=== PATIENT | male | born 1985 | race American Indian/Alaskan Native ===

== ENCOUNTER 2018-04-21 12:52 | Emergency (ER) | payer SELFPAY ==
[2018-04-21 13:10] VITALS: BP 148/85
[2018-04-21] MEDS ORDERED: NORCO 5/325 PO ONE (15:52)
[2018-04-21] MEDS ORDERED: KEFLEX PO ONE (15:52)
--- NOTE | 2018-04-21 15:57 | Emergency Department Report ---
Abscess Boil HPI - HPI Chief Complaint: Extremity Problem,Nontraumatic Stated Complaint: POSS THUMB INJURY Time Seen by Provider: 04/21/18 15:46 Duration: 5 Days Location: Upper Extremity Severity: Mild History: Yes Pain, No Fever, No Purulent Drainage, No Numbness, No Foreign Body , No Previous History, No Insect Bite Home Medications: Previous Rx's Medication Instructions Recorded Last Taken Type cephALEXin [Keflex] 500 mg PO Q12HR #20 cap 04/21/18 Unknown Rx Allergies/Adverse Reactions: Allergies Allergy/AdvReac Type Severity Reaction Status Date / Time No Known Allergies Allergy Verified 07/09/15 21:05 ED Review of Systems ROS: Stated complaint: POSS THUMB INJURY Other details as noted in HPI Comment: All other systems reviewed and negative Constitutional: denies: chills, fever Eyes: denies: eye pain ENT: denies: ear pain Respiratory: denies: cough Cardiovascular: denies: chest pain Endocrine: denies: excessive sweating, flushing Gastrointestinal: denies: abdominal pain Genitourinary: denies: urgency Musculoskeletal: denies: back pain Skin: lesions (R THUMB ) Neurological: denies: headache Psychiatric: denies: anxiety Hematological/Lymphatic: denies: easy bleeding ED Past Medical Hx - Past Medical History Previous Medical History?: Yes Hx Hypertension: Yes Hx Diabetes: Yes Additional medical history: For hypertension negative for dyslipidemia - Surgical History Past Surgical History?: Yes Additional Surgical History: Right ankle broken 2010. - Family History Family history: no significant - Social History Smoking Status: Current Every Day Smoker Substance Use Type: None - Medications Home Medications: Home Medications Medication Instructions Recorded Confirmed Last Taken Type cephALEXin [Keflex] 500 mg PO Q12HR #20 cap 04/21/18 Unknown Rx ED Abscess Boil Physical Exam - Exam General: Vital signs noted. No distress. Alert and acting appropriately. Size: 1 cm Exam: Yes Tenderness, Yes Fluctuance, Yes Normal Neurologic Exam, Yes Normal Circulation, No Surrounding Cellulites/Erythema, No Lymphangitis, No Crepitation , No Heart Murmur Exam: R THUMB LATERAL PARONYCHIA I & D Note - I & D Note I & D Note: I/D TO R THUMB. [facility] ED Course Vital Signs 04/21/18 13:08 Temperature 98.4 F Pulse Rate 84 Respiratory 16 Rate Blood Pressure 148/85 O2 Sat by Pulse 96 Oximetry Critical care attestation.: If time is entered above; I have spent that time in minutes in the direct care of this critically ill patient, excluding procedure time. ED Medical Decision Making - Medical Decision Making NON ILL APPEARING - Differential Diagnosis PARONYCHIA ED Disposition Clinical Impression: Diabetes, Paronychia Disposition: DC-01 TO HOME OR SELFCARE Is pt being admited?: No Does the pt Need Aspirin: No Condition: Stable Instructions: Paronychia (ED) Additional Instructions: SOAK WOUND IN WARM WATER AND EPSOM SALTS THREE TIMES PER DAY FOR 20 M EACH TIME. MEDS UNTIL GONE FOLLOW UP WITH PCP MONITOR BLOOD SUGAR KEEP WOUND CLEAN ALLOW TO DRAIN Referrals: PRIMARY CARE, [Primary Care Provider] - 3-5 Days Time of Disposition: 15:56
== END 2018-04-21 16:08 | disposition home or self-care (01) ==
LOC: ED 12:52
DX: L03.011 Cellulitis of right finger (principal); E11.9 Type 2 diabetes mellitus without complications; F17.200 Nicotine dependence, unspecified, uncomplicated; I10 Essential (primary) hypertension
CPT/HCPCS: 99282

== ENCOUNTER 2020-11-30 21:09 | Emergency (ER) | payer OTHER ==
[2020-11-30] MEDS ORDERED: ASPIRIN 325 MG TAB PO ONE (21:30)
--- NOTE | 2020-11-30 21:34 | Event Note ---
ED Screening Note Date of service: 11/30/20 Time: 21:33 ED Screening Note: 35-year-old morbid obese -Omani male with a past medical history of hypertension diabetes presents to the emergency room complaining of chest pain shortness of breath for few days. Patient thinks his blood sugar is low. Blood sugar checked in triage is 110. Blood pressure is 184/100. This initial assessment/diagnostic orders/clinical plan/treatment(s) is/are subject to change based on patients health status, clinical progression and re- assessment by fellow clinical providers in the ED. Further treatment and workup at subsequent clinical providers discretion. Patient/guardian urged not to elope from the ED as their condition may be serious if not clinically assessed and managed. Initial orders include:
[2020-11-30 22:04] LABS: Basophils # (Auto) 0.1 K/mm3 (0.0-0.1); Basophils % (Auto) 0.8 % (0.0-1.8); Eosinophils # (Auto) 0.1 K/mm3 (0.0-0.4); Eosinophils % (Auto) 1.2 % (0.0-4.3); Hematocrit 40.9 % (35.5-45.6); Hemoglobin 13.9 gm/dl (11.8-15.2); Lymphocytes # (Auto) 3.7 K/mm3 (1.2-5.4); Lymphocytes % (Auto) 50.9 % (13.4-35.0); Mean Corpuscular HGB Conc 34 % (32-34); Mean Corpuscular Volume 83 fl (84-94); Monocytes # (Auto) 0.8 K/mm3 (0.0-0.8); Monocytes % (Auto) 10.7 % (0.0-7.3); Platelet Count 201 K/mm3 (140-440); Red Blood Count 4.91 M/mm3 (3.65-5.03)
--- NOTE | 2020-11-30 22:25 | XRay Report ---
CHEST 2 VIEWS INDICATION / CLINICAL INFORMATION: chest pain. COMPARISON: 11/10/2019 FINDINGS: SUPPORT DEVICES: None. HEART / MEDIASTINUM: Stable. LUNGS / PLEURA: No significant pulmonary or pleural abnormality. No pneumothorax. ADDITIONAL FINDINGS: No significant additional findings. IMPRESSION: 1. No acute findings. Signer Name: Tee Mayberry MD Signed: 11/30/2020 10:21 PM Workstation Name: [id number]
[2020-11-30 22:28] LABS: Alanine Aminotransferase 35 units/L (7-56); BUN/Creatinine Ratio 18; Blood Urea Nitrogen 18 mg/dL (9-20); Calcium 8.9 mg/dL (8.4-10.2); Hemolysis Index 24
--- NOTE | 2020-12-01 01:23 | Emergency Department Report ---
ED Chest Pain HPI - General Chief Complaint: Chest Pain Stated Complaint: SOB/DIABETIC PUI?: No Time Seen by Provider: 12/01/20 01:20 Source: patient Mode of arrival: Ambulatory Limitations: No Limitations - History of Present Illness Initial Comments: Patient is a 35-year-old male that presents emergency room with complaints of chest pain or shortness of breath. Patient states that his chest pain shortness of breath started 2 days ago. Patient states that the symptoms are worsening. Patient states there intermittent but coming more frequently. Patient states he called EMS because he was unable to get out of bed or get up and walk due to the debilitating shortness of breath and chest pain. Patient states his chest pain or shortness of breath are better with rest. Patient states his shortness of breath and chest pain are worse with exertion. Patient states the chest pain is in the left upper chest. Patient states is nonradiating. Patient states is a 10 out of 10. Patient denies recent travel. Patient denies recent international travel. Patient denies exposure to the novel coronavirus. Patient denies sick contacts. Patient denies fever and chills. Patient denies cough. Patient denies diarrhea. Patient denies coming in contact with anybody with symptoms of the novel coronavirus. Patient states he has history of diabetes, hyperlipidemia and hypertension. Patient states he thinks he takes something for cholesterol. MD Complaint: chest pain -: Sudden Pain Location: substernal, left chest Severity: severe Severity scale (0 -10): 10 Quality: sharp Consistency: constant Improves With: rest Worsens With: exertion re: dyspnea. denies: nausea, vomting, diaphoresis Other Symptoms: denies: cough, fever, syncope, rash, acid taste in mouth, leg swelling, palpitations, burping Treatments Prior to Arrival: none Aspirin use within the Past 7 Days: (1) Yes - Related Data On Oral Contraceptives: No Previous Rx's Medication Instructions Recorded Last Taken Type Magnesium Oxide 400 mg PO QDAY #30 tablet 11/10/19 Unknown Rx Multivitamin with Folic Acid [[facility] 400 mcg PO QDAY #30 tablet 11/10/19 Unknown Rx One Daily Essential Tablet] chlordiazePOXIDE [Librium] 25 mg PO Q6H PRN #25 capsule 11/10/19 Unknown Rx Allergies Allergy/AdvReac Type Severity Reaction Status Date / Time No Known Allergies Allergy Verified 07/09/15 21:05 Heart Score - HEART Score History: Moderately suspicious EKG: Non-specific Age: < 45 Risk factors: > 3 risk factors or hx of atherosclerotic disease Troponin: < normal limit HEART Score: 4 - EKG Read Time Time EKG Completed: 21:30 EKG Read Time: 21:32 ED Review of Systems ROS: Stated complaint: SOB/DIABETIC Other details as noted in HPI Constitutional: denies: chills, fever Eyes: denies: eye pain, eye discharge, vision change ENT: denies: ear pain, throat pain Respiratory: shortness of breath. denies: cough, wheezing Cardiovascular: as per HPI, chest pain. denies: palpitations Endocrine: no symptoms reported Gastrointestinal: denies: abdominal pain, nausea, diarrhea Genitourinary: denies: urgency, dysuria Musculoskeletal: denies: back pain, joint swelling, arthralgia Skin: denies: rash, lesions Neurological: denies: headache, weakness, paresthesias Psychiatric: denies: anxiety, depression Hematological/Lymphatic: denies: easy bleeding, easy bruising ED Past Medical Hx - Past Medical History Previous Medical History?: Yes Hx Hypertension: Yes Hx Diabetes: Yes Additional medical history: For hypertension negative for dyslipidemia - Surgical History Past Surgical History?: Yes Additional Surgical History: Right ankle broken 2010. - Family History Family history: no significant - Social History Smoking Status: Never Smoker Substance Use Type: None - Medications Home Medications: Home Medications Medication Instructions Recorded Confirmed Last Taken Type Magnesium Oxide 400 mg PO QDAY #30 tablet 11/10/19 Unknown Rx Multivitamin with Folic Acid [[facility] 400 mcg PO QDAY #30 tablet 11/10/19 Unknown Rx One Daily Essential Tablet] chlordiazePOXIDE [Librium] 25 mg PO Q6H PRN #25 capsule 11/10/19 Unknown Rx ED Physical Exam - General Limitations: No Limitations General appearance: alert, in no apparent distress - Head Head exam: Present: atraumatic, normocephalic - Eye Eye exam: Present: normal appearance - ENT ENT exam: Present: mucous membranes moist - Neck Neck exam: Present: normal inspection - Respiratory Respiratory exam: Present: normal lung sounds bilaterally. Absent: respiratory distress - Cardiovascular Cardiovascular Exam: Present: regular rate, normal rhythm. Absent: systolic murmur, diastolic murmur, rubs, gallop - GI/Abdominal GI/Abdominal exam: Present: soft, normal bowel sounds - Rectal Rectal exam: Present: deferred - Extremities Exam Extremities exam: Present: normal inspection - Back Exam Back exam: Present: normal inspection - Neurological Exam Neurological exam: Present: alert, oriented X3 - Psychiatric Psychiatric exam: Present: normal affect, normal mood - Skin Skin exam: Present: warm, dry, intact, normal color. Absent: rash ED Course Vital Signs 11/30/20 12/01/20 12/01/20 21:15 01:12 02:01 Temperature 98.2 F Pulse Rate 114 H Respiratory 18 Rate Blood Pressure 184/100 152/96 O2 Sat by Pulse 97 98 98 Oximetry 12/01/20 12/01/20 03:00 03:01 Temperature Pulse Rate 93 H Respiratory 18 Rate Blood Pressure 163/90 O2 Sat by Pulse 100 99 Oximetry - Reevaluation(s) Reevaluation #1: I discussed all results with patient. I discussed plan of care with patient. Patient agrees with plan of care and transfer. Patient be transferred to a [facility] facility. 12/01/20 02:33 - Consultations Consultation #1: I discussed the case with Michael, Dr. Huddleston. Dr. Huddleston accepted the patient to be an ER to ER transfer to [facility] facility. 12/01/20 02:30 WILMER score - Wilmer Score Age > 65: (0) No Aspirin use within the Past 7 Days: (1) Yes 3 or more CAD Risk Factors: (1) Yes 2 or more Angina events in past 24 hrs: (1) Yes Known CAD with more than 50% Stenosis: (0) No Elevated Cardiac Markers: (0) No ST Deviation Greater than 0.5mm: (0) No WILMER Score: 3 ED Medical Decision Making - Lab Data Result diagrams: 11/30/20 21:54 11/30/20 21:54 - EKG Data -: EKG Interpreted by Me EKG shows normal: sinus rhythm, axis, intervals, QRS complexes, ST-T waves Rate: tachycardia - EKG Data Interpretation: other - Radiology Data Radiology results: report reviewed, image reviewed interpreted by me: Chest x-ray: No pneumonia, no pneumothorax, no foreign body, no osseous findings, no acute findings - Medical Decision Making Patient is a 35-year-old male that presents emergency room with complaints of chest pain and shortness of breath. Patient symptoms worsen. Patient had a cardiac work-up. Patient is a cardiac negative. Patient troponin negative x2. Patient's chest x-ray was negative for acute finding. Patient's EKG is negative for acute findings shows a normal sinus tach with PVCs. EKG shows no ST segment changes. I personally reviewed the EKG and chest x-ray. Patient has cardiac risk factors of diabetes, obesity and hyperlipidemia. Patient will require admission to rule out ACS. Patient's private insurance is [employer] and [facility] has accepted the patient be transferred to ER to ER to a [facility] facility. Patient stable for transfer. Critical care time documented due to the multiple reassessments, prolonged time at the bedside, interpretation of diagnostics and labs and discussion with consultants and receiving hospital. - Differential Diagnosis Chest pain, ACS, shortness of breath, anxiety, Critical Care Time: Yes Critical care time in (mins) excluding proc time.: 35 Critical care attestation.: If time is entered above; I have spent that time in minutes in the direct care of this critically ill patient, excluding procedure time. Critical Care Time: 35 minutes ED Disposition Clinical Impression: SOB (shortness of breath) Chest pain Qualifiers: Chest pain type: unspecified Qualified Code(s): R07.9 - Chest pain, unspecified Disposition: DC/TX-70 ANOTHER TYPE HLTHCARE Is pt being admited?: No Does the pt Need Aspirin: No Condition: Critical Time of Disposition: 02:34
[2020-12-01 03:29] VITALS: BP 163/90
--- NOTE | 2020-12-05 17:25 | Electrocardiograph Report ---
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
== END 2020-12-01 04:41 | disposition other institution (70) ==
LOC: ED 21:09
DX: R07.89 Other chest pain (principal); R06.02 Shortness of breath; I10 Essential (primary) hypertension; E11.9 Type 2 diabetes mellitus without complications; Z98.890 Other specified postprocedural states; Z79.899 Other long term (current) drug therapy
CPT/HCPCS: 36415; 71046; 80053; 82962; 84484; 85025; 93005

== ENCOUNTER 2020-12-17 15:29 | Emergency (ER) | payer OTHER ==
[2020-12-17 16:16] VITALS: BP 137/86
[2020-12-17 17:02] LABS: Basophils # (Auto) 0.1 K/mm3 (0.0-0.1); Basophils % (Auto) 1.4 % (0.0-1.8); Eosinophils # (Auto) 0.1 K/mm3 (0.0-0.4); Eosinophils % (Auto) 2.1 % (0.0-4.3); Hematocrit 38.5 % (35.5-45.6); Lymphocytes # (Auto) 1.7 K/mm3 (1.2-5.4); Mean Corpuscular HGB Conc 34 % (32-34); Mean Corpuscular Volume 86 fl (84-94); Monocytes # (Auto) 0.4 K/mm3 (0.0-0.8); Monocytes % (Auto) 11.3 % (0.0-7.3); Platelet Count 296 K/mm3 (140-440); Red Cell Distribution Width 16.6 % (13.2-15.2)
--- NOTE | 2020-12-17 17:04 | Emergency Department Report ---
ED Chest Pain HPI - General Chief Complaint: Chest Pain Stated Complaint: CHEST PAIN Time Seen by Provider: 12/17/20 16:40 Source: patient Mode of arrival: Ambulatory Limitations: No Limitations - History of Present Illness Initial Comments: This is a 35-year-old male type II diabetic with hypertension who signed out AMA after a "5-day" admission at [facility] approximately 2 to 3 weeks ago. The patient states, "this time I am going to do right". He states for the past 3 days he has been having substernal chest heaviness. He wakes up in the night short of breath he states. He is not short of breath at rest at the time of my encounter. He tells me the reason why he came to the hospital today is because "my mother said I did not look right". He did not take his Metformin today. Apparently he has not been following up with his [facility] physician either. He does not know what the results of his testing were at [facility]. He does state that "2 of my doctors wanted me to stay". I asked him about cardiac catheterization and he was not able to confirm if that was the plan. He does appear relatively comfortable and is not complaining of chest pain currently. MD Complaint: chest pain -: Gradual, days(s), week(s) Onset: during rest Pain Location: substernal Pain Radiation: none Severity: mild, moderate Quality: heaviness Consistency: now resolved Improves With: nothing Worsens With: nothing re: denies: nausea, vomting, diaphoresis Other Symptoms: denies: cough, fever, syncope Treatments Prior to Arrival: other (As above denies taking aspirin) Aspirin use within the Past 7 Days: (0) No - Related Data Previous Rx's Medication Instructions Recorded Last Taken Type Magnesium Oxide 400 mg PO QDAY #30 tablet 11/10/19 Unknown Rx Multivitamin with Folic Acid [[facility] 400 mcg PO QDAY #30 tablet 11/10/19 Unknown Rx One Daily Essential Tablet] chlordiazePOXIDE [Librium] 25 mg PO Q6H PRN #25 capsule 11/10/19 Unknown Rx Allergies Allergy/AdvReac Type Severity Reaction Status Date / Time No Known Allergies Allergy Verified 07/09/15 21:05 Heart Score - HEART Score History: Moderately suspicious EKG: Significant ST-depression Age: < 45 Risk factors: > 3 risk factors or hx of atherosclerotic disease Troponin: < normal limit HEART Score: 5 - EKG Read Time Time EKG Completed: 15:36 EKG Read Time: 15:40 - Critical Actions Critical Actions: 4-6 pts:12-16.6% risk of adverse cardiac event. Should be admitted ED Review of Systems ROS: Stated complaint: CHEST PAIN Other details as noted in HPI Constitutional: denies: chills, fever Eyes: denies: eye pain, eye discharge, vision change ENT: denies: ear pain, throat pain Respiratory: see HPI, shortness of breath. denies: cough, wheezing Cardiovascular: chest pain. denies: palpitations Endocrine: no symptoms reported Gastrointestinal: denies: abdominal pain, nausea, diarrhea Genitourinary: denies: urgency, dysuria Musculoskeletal: denies: back pain, joint swelling, arthralgia Skin: denies: rash, lesions Neurological: denies: headache, weakness, paresthesias Psychiatric: denies: anxiety, depression Hematological/Lymphatic: denies: easy bleeding, easy bruising ED Past Medical Hx - Past Medical History Previous Medical History?: Yes Hx Hypertension: Yes Hx Diabetes: Yes Additional medical history: For hypertension negative for dyslipidemia - Surgical History Additional Surgical History: Right ankle broken 2010. - Social History Smoking Status: Never Smoker Substance Use Type: None - Medications Home Medications: Home Medications Medication Instructions Recorded Confirmed Last Taken Type Magnesium Oxide 400 mg PO QDAY #30 tablet 11/10/19 Unknown Rx Multivitamin with Folic Acid [[facility] 400 mcg PO QDAY #30 tablet 11/10/19 Unknown Rx One Daily Essential Tablet] chlordiazePOXIDE [Librium] 25 mg PO Q6H PRN #25 capsule 11/10/19 Unknown Rx ED Physical Exam - General Limitations: No Limitations General appearance: alert, in no apparent distress, obese - Head Head exam: Present: atraumatic, normocephalic - Eye Eye exam: Present: normal appearance. Absent: scleral icterus - ENT ENT exam: Present: mucous membranes moist - Neck Neck exam: Present: normal inspection - Respiratory Respiratory exam: Present: normal lung sounds bilaterally. Absent: respiratory distress - Cardiovascular Cardiovascular Exam: Present: regular rate, normal rhythm. Absent: systolic murmur, diastolic murmur, rubs, gallop - GI/Abdominal GI/Abdominal exam: Present: soft, normal bowel sounds. Absent: distended, tenderness, guarding, rebound, rigid - Rectal Rectal exam: Present: deferred - Extremities Exam Extremities exam: Present: normal inspection - Back Exam Back exam: Present: normal inspection - Neurological Exam Neurological exam: Present: alert, oriented X3, CN II-XII intact. Absent: motor sensory deficit - Psychiatric Psychiatric exam: Present: normal affect, normal mood - Skin Skin exam: Present: warm, dry, intact, normal color. Absent: rash ED Course Vital Signs 12/17/20 16:12 Temperature 98.5 F Pulse Rate 89 Respiratory 18 Rate Blood Pressure 137/86 [Right] O2 Sat by Pulse 98 Oximetry - Reevaluation(s) Reevaluation #1: Attempted to get records from [facility]. Attempted to call [facility] concerning the patient. On reassessment, the patient was found to be eloped. 12/17/20 18:25 Reevaluation #2: I do not see evidence of diabetes on multiple lab tests. The patient's blood sugar was not elevated despite him not taking Metformin. He is apparently medically noncompliant in several regards. Quite ironically, after telling me "I am going to do right this time" he eloped without informing the nurse. 12/17/20 18:27 WILMER score - Wilmer Score Age > 65: (0) No Aspirin use within the Past 7 Days: (1) Yes 3 or more CAD Risk Factors: (1) Yes 2 or more Angina events in past 24 hrs: (1) Yes Known CAD with more than 50% Stenosis: (0) No Elevated Cardiac Markers: (0) No ST Deviation Greater than 0.5mm: (0) No WILMER Score: 3 ED Medical Decision Making - Lab Data Result diagrams: 12/17/20 16:44 12/17/20 16:44 Laboratory Results - last 24 hr 12/17/20 12/17/20 12/17/20 16:09 16:44 16:44 WBC 3.6 L RBC 4.50 Hgb 13.0 Hct 38.5 MCV 86 MCH 29 MCHC 34 RDW 16.6 H Plt Count 296 Lymph % (Auto) 46.0 H Navarro % (Auto) 11.3 H Eos % (Auto) 2.1 Baso % (Auto) 1.4 Lymph # (Auto) 1.7 Navarro # (Auto) 0.4 Eos # (Auto) 0.1 Baso # (Auto) 0.1 Seg Neutrophils % 39.2 L Seg Neutrophils # 1.4 L PT 12.2 INR 0.91 APTT 27.1 Sodium Potassium Chloride Carbon Dioxide Anion Gap BUN Creatinine Estimated GFR BUN/Creatinine Ratio Glucose POC Glucose 106 H Calcium Magnesium Total Bilirubin Direct Bilirubin Indirect Bilirubin AST ALT Alkaline Phosphatase Troponin T NT-Pro-B Natriuret Pep Total Protein Albumin Albumin/Globulin Ratio 12/17/20 12/17/20 12/17/20 16:44 16:44 16:44 WBC RBC Hgb Hct MCV MCH MCHC RDW Plt Count Lymph % (Auto) Navarro % (Auto) Eos % (Auto) Baso % (Auto) Lymph # (Auto) Navarro # (Auto) Eos # (Auto) Baso # (Auto) Seg Neutrophils % Seg Neutrophils # PT INR APTT Sodium 135 L Potassium 4.1 Chloride 96.9 L Carbon Dioxide 22 Anion Gap 20 BUN 20 Creatinine 1.0 Estimated GFR > 60 BUN/Creatinine Ratio 20 Glucose 94 POC Glucose Calcium 9.0 Magnesium 1.60 L Total Bilirubin 0.60 Direct Bilirubin < 0.2 Indirect Bilirubin 0.4 AST 42 H ALT 35 Alkaline Phosphatase 46 Troponin T < 0.010 NT-Pro-B Natriuret Pep 18.59 Total Protein 6.4 Albumin 4.1 Albumin/Globulin Ratio 1.8 - EKG Data -: EKG Interpreted by Ms EKG shows normal: sinus rhythm, axis, intervals, QRS complexes, ST-T waves Rate: normal - EKG Data Interpretation: other (T depression and/or T wave inversion inferolateral leads, consider ischemia) Critical care attestation.: If time is entered above; I have spent that time in minutes in the direct care of this critically ill patient, excluding procedure time. ED Disposition Clinical Impression: Medical non-compliance Chest pain Qualifiers: Chest pain type: unspecified Qualified Code(s): R07.9 - Chest pain, unspecified Disposition: ELOPED Is pt being admited?: No Does the pt Need Aspirin: No Condition: Stable Instructions: Nonspecific Chest Pain, Adult Time of Disposition: 18:28
[2020-12-17 17:11] LABS: INR 0.91 (0.87-1.13)
--- NOTE | 2020-12-17 17:11 | XRay Report ---
CHEST 1 VIEW INDICATION: Chest Pain. COMPARISON: 11/30/2020 FINDINGS: SUPPORT DEVICES: None. HEART: Within normal limits. LUNGS/PLEURA: No acute air space or interstitial disease. ADDITIONAL FINDINGS: None. IMPRESSION: 1. No acute findings. Signer Name: Juan Carlos Diaz MD Signed: 12/17/2020 5:07 PM Workstation Name: [id number]
[2020-12-17 17:12] LABS: Partial Thromboplastin Time 27.1 Sec. (24.2-36.6)
[2020-12-17 17:19] LABS: BUN/Creatinine Ratio 20; Blood Urea Nitrogen 20 mg/dL (9-20); Hemolysis Index 9
[2020-12-17 17:23] LABS: Alanine Aminotransferase 35 units/L (7-56); Albumin 4.1 g/dL (3.9-5); Bilirubin,Direct < 0.2 mg/dL (0-0.2)
--- NOTE | 2020-12-18 21:44 | Electrocardiograph Report ---
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
== END 2020-12-17 18:00 | disposition left against medical advice (07) ==
LOC: ED 15:29
DX: R07.89 Other chest pain (principal); Z91.19 Patient's noncompliance with other medical treatment and regimen; I10 Essential (primary) hypertension; E11.9 Type 2 diabetes mellitus without complications; Z79.899 Other long term (current) drug therapy
CPT/HCPCS: 36415; 71045; 80048; 80076; 82962; 83735; 83880; 84484; 85025; 85610; 85730; 93005; 99283